=== PATIENT | female | born 1940 | race Caucasian/White ===

== ENCOUNTER 2024-02-13 10:51 | Outpatient (CLI) | payer MEDICARE, BC, SELFPAY | END 2024-02-13 10:52 | disposition home or self-care (01) | LOC: NFLDREF 10:52 | PROVIDERS: Visit Provider Obstetrics & Gynecology | DX: N81.9 Female genital prolapse, unspecified (principal); R33.9 Retention of urine, unspecified | CPT/HCPCS: 87070; 87086; 87186 ==